=== PATIENT | female | born 1955 | race Hispanic/Latino ===

== ENCOUNTER → 2020-04-20 | Outpatient (CLI) | payer OTHER | END | disposition home or self-care (01) | LOC: OIH 09:06 | PROVIDERS: ATTEND Internal Medicine | DX: M19.072 Primary osteoarthritis, left ankle and foot (principal); M19.071 Primary osteoarthritis, right ankle and foot; M85.80 Other specified disorders of bone density and structure, unspecified site | CPT/HCPCS: 73630 ==

== ENCOUNTER 2022-09-14 06:32 | Emergency (ER) | payer OTHER ==
[2022-09-14 06:57] LABS: BASOPHILS % (AUTO) 0.5 % (0.0-5.0); EOSINOPHILS % (AUTO) 0.1 % (0.0-8.0); HEMATOCRIT 37.9 % (36-48); LYMPHOCYTES % (AUTO) 12.1 % (21.0-51.0); MEAN CORPUSCULAR HEMOGLOBIN 27.5 pg (27.0-33.0); MEAN CORPUSCULAR VOLUME 83.3 fL (79-99); MONOCYTES % (AUTO) 4.1 % (3.0-13.0); NEUTROPHILS % (AUTO) 82.8 % (40.0-77.0); PLATELET COUNT (AUTO) 353 K/uL (130-400); RED BLOOD CELL COUNT(AUTO) 4.55 MIL/uL (4.00-5.50); RED CELL DISTRIBUTION WIDTH 14.5 % (11.0-15.5); WHITE BLOOD COUNT (AUTO) 8.5 K/uL (4.8-10.8)
[2022-09-14 07:12] LABS: ALBUMIN 3.9 g/dL (3.5-5.0); CREATININE 0.7 mg/dL (0.5-1.5); POTASSIUM 3.6 mmol/L (3.5-5.1); TOTAL PROTEIN, SERUM 8.2 g/dL (6.0-8.3)
[2022-09-14] MEDS ORDERED: 0.9%NACL 1000ML 1,000 ML IV SCH (07:30)
[2022-09-14] MEDS ORDERED: LOPERAMIDE HCL 2 MG CAP PO ONE (07:30)
[2022-09-14] MEDS ORDERED: ONDANSETRON 4MG INJ IV ONE (07:30)
[2022-09-14] MEDS ORDERED: ONDA4TAB10 PO (08:19)
[2022-09-14] MEDS ORDERED: LOPE2TAB26 PO (08:19)
[2022-09-14] MEDS ORDERED: CIPR750T17 PO (08:19)
[2022-09-14 08:38] VITALS: BP 138/67
== END 2022-09-14 08:59 | disposition home or self-care (01) ==
LOC: EDH 06:32
DX: K52.9 Noninfective gastroenteritis and colitis, unspecified (principal); I10 Essential (primary) hypertension; Z20.822 Contact with and (suspected) exposure to COVID-19
CPT/HCPCS: 99283; 96374; 87635; 96361; 80053; 83690; 85025; 36415; C9803; J7030; J2405

== ENCOUNTER → 2024-10-16 | Outpatient (CLI) | payer OTHER ==
[~2024-10-16] MED LIST: CIPR750T90 PO; LOPE2TAB26 PO; ONDA-243 PO
== END | disposition home or self-care (01) ==
LOC: RAH 09:22
PROVIDERS: ATTEND Family Medicine
DX: Z12.31 Encounter for screening mammogram for malignant neoplasm of breast (principal)
CPT/HCPCS: 77067

== ENCOUNTER 2025-01-27 19:39 | Emergency (ER) | payer OTHER ==
[~2025-01-27] VITALS: Ht 147.3 cm; Wt 68.0 kg
--- NOTE | 2025-01-27 19:45 | ERN ---
ED Note History of Present Illness Stated Complaint: NAUSEA/VOMITING, ABDOMINAL DISCOMFORT X 2 WKS Chief Complaint: Nausea,Vomiting,Diarrhea Time Seen by MD: 19:39 Dictation: PATIENT IS A 69-YEAR-OLD FEMALE COMING IN TODAY WITH COMPLAINTS OF COLICKY PAIN DISCOMFORT FOR THE LAST TWO WEEKS TO HER PERIUMBILICAL AND LEFT LOWER QUADRANT PAIN. SHE STARTED HAVING NAUSEA VOMITING YESTERDAY AFTER SHE SAW HER DOCTOR WAS PRESCRIBED AN ANTIBIOTIC HOWEVER SHE WAS NEVER TOLD WHAT THE ANTIBIOTIC WAS FOUR. SHE SAID SHE HAS HAD NO FEVER NO CHILLS NO CHEST PAIN NO BACK PAIN. SHE INDICATES HER PAIN IS PERIUMBILICAL AND LEFT LOWER QUADRANT. Allergies: Coded Allergies: No Known Drug Allergies (Unverified Allergy, Unknown, 09/14/22) Home Meds Active Scripts Loperamide HCl (Loperamide) 2 Mg Tablet, 2 MG PO 5X/DAY for with every diarrhea, #12 TAB 0 Refills Prov:MONTY SMITH MD 09/14/22 Ondansetron (Ondansetron Odt) 4 Mg Tab.rapdis, 4 MG PO Q6H for nausea, #10 TAB 0 Refills Prov:MONTY SMITH MD 09/14/22 Ciprofloxacin HCl (Cipro) 750 Mg Tab, 750 MG PO BID for 3 Days, #6 TAB 0 Refills Prov:MONTY SMITH MD 09/14/22 Past Medical History Past Medical History: Diabetes-Type II, High Cholesterol, Hypertension Additional Past Medical Hx: RHEUMATOID ARTHRITIS Surgical History: None History: Not Applicable RN Note Reviewed/Agreed w/PFSH: Yes Review of System Dictation CONSTITUTIONAL: NEGATIVE EXCEPT FOR HPI HEAD/FACE: NEGATIVE EXCEPT FOR HPI EENT: NEGATIVE EXCEPT FOR HPI RESPIRATORY: NEGATIVE EXCEPT FOR HPI GASTROINTESTINAL/ABDOMINAL: NEGATIVE EXCEPT FOR HPI PERIUMBILICAL AND LEFT LOWER QUADRANT PAIN NAUSEA VOMITING GENITOURINARY: NEGATIVE EXCEPT FOR HPI MUSCULOSKELETAL: NEGATIVE EXCEPT FOR HPI INTEGUMENTARY: NEGATIVE EXCEPT FOR HPI NEUROLOGICAL/PSYCH: NEGATIVE EXCEPT FOR HPI HEMATOLOGIC/LYMPHATIC: NEGATIVE EXCEPT FOR HPI ALL SYSTEMS NEGATIVE, EXCEPT NOTED ABOVE. 13 POINT REVIEW OF SYSTEMS ASSESSED AND ALL NEGATIVE EXCEPT FOR ABOVE. Initial Vital Sign VS Vital Signs Date Time Temp Pulse Resp B/P (MAP) Pulse Ox O2 Delivery O2 Flow Rate FiO2 01/27/25 19:40 98.1 77 18 156/78 97 Room Air 0 Physical Exam Dictation VITAL SIGNS REVIEWED GENERAL APPEARANCE: ALERT, ORIENTED X 3, MODERATE ACUTE DISTRESS, WELL DEVELOPED, NOURISHED. HEAD AND FACE: NON-TRAUMATIC. EYES: PERRL, PINK CONJUNCTIVAS, EYELID NO TRAUMA, ANTERIOR CHAMBER WITH ARCUS SENILIS. EARS: PINNAS INTACT AND NO SIGNS OF TRAUMA OR ERYTHEMA EAR CANALS CLEAR AND NO DISCHARGE TM NO ERYTHEMA NOSE: NO DISCHARGE, NO BLEEDING. OROPHARYNX: MOUTH NORMAL, TONGUE PINK, PHARYNX CLEAR,NO ERYTHEMA, TONSILS NO EXUDATES, NO ABSCESSES NOTED, MUCOUS MEMBRANE MOIST NECK: SUPPLE, NON-TENDER, NO THYROMEGALY, NO MASSES, NO JVD, NO BRUITS BREAST:DEFERRED CHEST:NO TENDERNESS, NO CREPITUS, NO PARADOXICAL MOVEMENT, NO RETRACTIONS LUNGS:CLEAR, WELL-VENTILATED, SYMMETRIC, NO RALES, NO WHEEZING, NO RHONCHI, NO STRIDOR, GOOD BREATH SOUNDS BILATERALLY HEART: REGULAR RATE, REGULAR RHYTHM, NO MURMUR, NO GALLOPS VASCULAR: NO PERIPHERAL EDEMA, ABDOMEN: SOFT, POSITIVE BOWEL SOUNDS, NONDISTENDED, NO GUARDING, MILD PERIUMBILICAL AND LEFT LOWER QUADRANT TENDERNESS WITH PALPATION. NO REBOUND PAIN RECTAL: DEFERRED GENITAL: DEFERRED NEUROLOGICAL: NORMAL SPEECH, MOTOR FUNCTION INTACT, SENSORY FUNCTION INTACT MUSCULOSKELETAL: NECK NONTENDER, FULL RANGE OF MOTION, BACK NONTENDER, FULL RANGE OF MOTION, EXTREMITIES: NONTENDER, FULL RANGE OF MOTION SKIN: COLOR PINK, DRY, NO TURGOR, NO RASH, NO LACERATIONS, NO ABRASIONS, NO CONTUSIONS. LYMPHATIC: DEFERRED Results (Laboratory/Radiology) Laboratory/Radiology Laboratory Tests Test 01/27/25 19:54 White Blood Count 7.2 K/uL (4.8-10.8) Red Blood Count 4.68 MIL/uL (4.00-5.50) Hemoglobin 12.8 g/dL (12.0-16.0) Hematocrit 38.2 % (36-48) Mean Corpuscular Volume 81.6 fL (79-99) Mean Corpuscular Hemoglobin 27.4 pg (27.0-33.0) Mean Corpuscular Hemoglobin Concent 33.5 g/dL (32.0-36.0) Red Cell Distribution Width 14.2 % (11.0-15.5) Platelet Count 316 K/uL (130-400) Mean Platelet Volume 10.4 fL (7.5-10.5) Immature Granulocyte % (Auto) 0.3 % (0-1) Neutrophils (%) (Auto) 48.5 % (40.0-77.0) Lymphocytes (%) (Auto) 41.4 % (21.0-51.0) Monocytes (%) (Auto) 8.2 % (3.0-13.0) Eosinophils (%) (Auto) 1.2 % (0.0-8.0) Basophils (%) (Auto) 0.4 % (0.0-5.0) Neutrophils # (Auto) 3.5 K/uL (1.8-7.7) Lymphocytes # (Auto) 3.0 K/uL (1.0-4.8) Monocytes # (Auto) 0.6 K/uL (0.1-1.0) Eosinophils # (Auto) 0.09 K/uL (0.00-0.70) Basophils # (Auto) 0.03 K/uL (0.00-0.20) Absolute Immature Granulocyte (auto 0.02 K/uL (0-1) Nucleated Red Blood Cells 0.0 % (0.0-0.19) Urine Color COLORLESS (YELLOW) Urine Appearance CLEAR (CLEAR) Urine pH 6.5 (5.0-8.0) Urine Specific Pearl 1.002 (1.001-1.031) Urine Protein NEGATIVE mg/dL (NEGATIVE) Urine Glucose (UA) NEGATIVE mg/dL (NEGATIVE) Urine Ketones NEGATIVE mg/dL (NEGATIVE) Urine Occult Blood NEGATIVE (NEGATIVE) Urine Nitrate NEGATIVE (NEGATIVE) Urine Bilirubin NEGATIVE mg/dL (NEGATIVE) Urine Urobilinogen 0.2 mg/dL (0.2-1.0) Urine Leukocyte Esterase NEGATIVE Bjorn/uL Sodium Level 142 mmol/L (136-145) Potassium Level 4.1 mmol/L (3.5-5.1) Chloride Level 104 mmol/L (101-111) Carbon Dioxide Level 27 mmol/L (21-32) Blood Urea Nitrogen 11 mg/dL (7-18) Creatinine 0.8 mg/dL (0.5-1.0) Glomerular Filtration Rate Calc 79 mL/min (>90) Random Glucose 107 mg/dL (70-105) H Total Calcium 9.0 mg/dL (8.5-10.1) Troponin I High Sensitivity 5 ng/L (4-50) Lipase 138 U/L (16-77) H Labs Reviewed?: Yes EKG Comment: [facility] Test Date: 2025-01-27 Test Time: 19:58:46 Pat Name: MASON IRAHETA Department: [facility] Room: Gender: F 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 ED Course ED Course Orders Procedure Category Date Status Time Cbc With Differential LAB 01/27/25 Complete 19:42 Troponin I High LAB 01/27/25 Complete Sensitivity 19:42 Urinalysis Profile LAB 01/27/25 Complete 19:42 Ct Abdomen/Pelvis CT 01/27/25 Resulted W/Contrast 19:42 12 Lead Ekg Tracing- EKG 01/27/25 Resulted Technical 19:42 Morphine 2mg Syg PHA 01/27/25 Complete (Morphine 2mg Syg) 20:00 Ondansetron 4mg Inj PHA 01/27/25 Complete (Zofran 4mg Inj) 20:00 Lipase LAB 01/27/25 Complete 19:42 Basic Metabolic Panel LAB 01/27/25 Complete 19:42 Iohexol (Omnipaque) PHA 01/27/25 Complete 20:51 Current Medications Medications (Trade) Dose Ordered Sig/Citlaly Route PRN Reason Start Time Stop Time Status Last Admin Dose Admin Iohexol (Omnipaque) 75 ml STK-MED ONCE IV 01/27/25 20:51 01/27/25 20:51 DC Morphine Sulfate (morPHINE 2MG SYG) 2 mg ONCE ONCE IVP 01/27/25 20:00 01/27/25 20:01 DC 01/27/25 20:00 Ondansetron HCl (zoFRAN 4MG INJ) 4 mg ONCE ONCE IVP 01/27/25 20:00 01/27/25 20:01 DC 01/27/25 20:00 Vital Signs Date Time Temp Pulse Resp B/P (MAP) Pulse Ox O2 Delivery O2 Flow Rate FiO2 01/27/25 19:40 98.1 77 18 156/78 97 Room Air 0 HEART Score Response (Comments) Value EKG: Repolarization changes 1 Age: > 65yrs (+2) 2 Risk Factors: 1-2 risk factors (+1) 1 Initial Troponin: Normal limit (0) 0 Total 4 Medical Decision Making MDM Patient's laboratory analysis shows a normal CBC a normal UA and chemistry panel shows an ever so slightly elevated lipase activity. CT scan is negative for abscess or diverticulitis or any intra-abdominal process. Patient does have an extremely large stool burden and I think she is constipated. When I informed the patient of this diagnosis she nodded her head in agreement saying that she thought that that is what was happening. DX & DISP Disposition: Discharge Departure Impression: Primary Impression: Constipation Condition: Stable Additional Instructions: A workup for your abdominal pain has shown only a large stool burden in your large and small colon on CT scan. I think that your constipated. And you have acknowledged that you feel that is the correct diagnosis. You state that you are taking something called Linzess for IBS. The side effect from this can cause some abdominal pain and distention but usually it does not cause constipation. I recommend for constipation you take GoLYTELY every night. It is a gentle laxative that will help you have more bowel movements. An altern ative his magnesium citrate but this act very quickly and can be uncomfortable. Please talk to your primary care physician about what you can do to better manage your constipation. Wanting you can do is change her diet to include more roughage more vegetables and less meat starches and fewer beans. Referrals: TREVOR MENON PA-C (PCP) TAYLOR WALKER Jan 27, 2025 19:45 BRETT POPE MD Jan 27, 2025 23:05
--- NOTE | 2025-01-27 20:04 | EKG ---
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
[2025-01-27 20:12] LABS: CREATININE 0.8 mg/dL (0.5-1.0); GLOMERULAR FILTR. RATE CALC 79.0 mL/min (>90); GLUCOSE,RANDOM 107.0 mg/dL (70-105); SODIUM SERUM 142.0 mmol/L (136-145); UREA NITROGEN, BLOOD 11.0 mg/dL (7-18)
[2025-01-27 20:15] LABS: IMMATURE GRANULOCYTE ABSOLUTE 0.02 K/uL (0-1); NUCLEATED RED BLOOD CELLS 0.0 % (0.0-0.19); PLATELET COUNT (AUTO) 316 K/uL (130-400); RED BLOOD CELL COUNT(AUTO) 4.68 MIL/uL (4.00-5.50); RED CELL DISTRIBUTION WIDTH 14.2 % (11.0-15.5); WHITE BLOOD COUNT (AUTO) 7.2 K/uL (4.8-10.8)
[2025-01-27 20:20] LABS: APPEARANCE,URINE CLEAR (CLEAR); GLUCOSE, URINE (UA) NEGATIVE (NEGATIVE); LEUKOCYTE ESTERASE ,URINE NEGATIVE Leu/uL (NEGATIVE); NITRATE,URINE NEGATIVE (NEGATIVE); OCCULT BLOOD,URINE NEGATIVE (NEGATIVE)
[2025-01-27 20:21] LABS: ADD UA MICROSCOPIC NO
[2025-01-27] MEDS ORDERED: IOHEXOL-350 75 ML VIAL IV ONE (20:51)
--- NOTE | 2025-01-27 22:49 | HMCIMG ---
EXAM: CT Abdomen and Pelvis with IV contrast. CLINICAL HISTORY: Left lower quadrant pain with nausea and vomiting. TECHNIQUE: Axial computed tomography images of the abdomen and pelvis with intravenous contrast. COMPARISON: None provided. FINDINGS: LUNG BASES: The lung bases appear clear. No pleural effusions are seen. LIVER: A 0.5 cm hypodense lesion in segment II may represent a cyst. Recommend ultrasound correlation. GALLBLADDER AND BILE DUCTS: The gallbladder appears within normal limits. No radioopaque gallstones are seen. No biliary ductal dilatation is evident. PANCREAS: Unremarkable. SPLEEN: 0.7 cm hypodense lesion in the inferior aspect of the spleen, likely benign with a possibility of a cyst. ADRENAL GLANDS: Unremarkable. KIDNEYS, URETERS, AND BLADDER: The kidneys appear within normal limits. There is no hydronephrosis or hydroureter. No urinary calculi are seen. STOMACH AND BOWEL: Unremarkable appearance of the stomach and bowel. No evidence of bowel obstruction. No evidence suggesting enteritis or colitis. A moderate amount of fecal matter in the large bowel may represent a component of constipation. Small umbilical hernia with fat as content, defect size measuring up to 0.9 cm. APPENDIX: No evidence of acute appendicitis on CT examination. PERITONEUM: No free fluid. No free air. LYMPH NODES: No lymphadenopathy is evident. REPRODUCTIVE: Unremarkable as visualized. VASCULATURE: No evidence of abdominal aortic aneurysm. BONES: Moderate multilevel degenerative changes in the spine. There is a degenerative grade I anterolisthesis of L4 over L5, due to facet joint arthropathy. There is a levoscoliosis of the lumbar spine. No aggressive appearing osseous lesion. No acute osseous pathology evident. IMPRESSION: No acute intra-abdominal or pelvic abnormality. Compared to the prior study, there is no significant interval change. /[place]
[2025-01-27 23:17] VITALS: BP 144/72; PULSE 75; RESP 18; TEMP 98.4; O2SAT 98
== END 2025-01-27 23:18 | disposition home or self-care (01) ==
LOC: EDH 19:39
DX: K59.00 Constipation, unspecified (principal); R11.2 Nausea with vomiting, unspecified; E11.9 Type 2 diabetes mellitus without complications; E78.00 Pure hypercholesterolemia, unspecified; I10 Essential (primary) hypertension; M06.9 Rheumatoid arthritis, unspecified
CPT/HCPCS: 99285; 74177; 96374; 96375; 84484; 80048; 83690; 85025; 81003; 36415; 93005; J2270; J2405; Q9967